=== PATIENT | female | born 1950 | race Caucasian/White ===

== ENCOUNTER → 2018-12-09 | Outpatient (CLI) | payer MEDICARE, OTHER | LOC: ZCOL.LAB 16:34 | DX: Z01.812 Encounter for preprocedural laboratory examination (principal) ==

== ENCOUNTER 2018-12-16 14:11 | Inpatient (IN) | payer MEDICARE, OTHER ==
[~2018-12-16] VITALS: Ht 158.8 cm; Wt 70.4 kg
[~2018-12-16 14:11] MED LIST: ASPIRIN 32325 MG/TA1 PO; CALCIUM 600600 M2 PO; CHOLESTEROL MA600 MG PO; FOLIC ACID0.4 MG PO; HCTZ 25MG TAB25 MG PO; IRON325 M1 PO; MAGNESIUM250 M1 PO; MULTIPLE VITAMI1 CAP PO; NATURAL VITAM1000 MG PO; POTASSIUM595 MG PO; TENORMIN 2525 MG/TAB PO
[2019-01-19] VITALS (11 sets, daily range): BP systolic 102–172; BP diastolic 32–74; PULSE 44–81; TEMP 97.4–97.8
[2019-01-19] MEDS ORDERED: ATIVAN 0.50.5 MG/TAB PO (07:45)
[2019-01-19] MEDS ORDERED: CELEXA40 MG PO (07:46)
[2019-01-19] MEDS ORDERED: TYLENOL 8 HR PO (07:46)
[2019-01-19] MEDS ORDERED: DYMISTA1 SPR NS (07:51)
--- NOTE | 2019-01-19 13:50 | NUR ---
CALLED ANESTHESIA REGARDING SB IN 40'S WITH DIASTOLIC B/P IN THE 30'S CONSISTANTLY. PATIENT DROWSY, WILL AROUSE BRIEFLY AND THEN FALL BACK ASLEEP. GAVE NOW DOSE FOR ROBINOL 0.2ML IV. HOSPITALIST CONSULT
--- NOTE | 2019-01-19 15:00 | NUR ---
AFTER MORPHINE 2MG IV DOSE, PATIENT O2 SATS WENT DOWN TO 87%. PATIENT ON 2L PER NC WITH SATS NOW IN LOW TO MID 90'S.
[2019-01-19 15:28] LABS: ALBUMIN 3.4 gm/dL (3.5-5.0); BASO % 0.2 % (0.0-2.0); BILIRUBIN,TOTAL 0.3 mg/dL (0.0-1.0); CALCIUM 8.6 mg/dL (8.4-10.2); CREATININE, serum 0.58 (0.52-1.25); EOS # 0.2 (0.0-0.7); EOS % 1.2 % (0-4.0); GRAN # 8.6 (1.4-6.5); GRAN % 69.1 % (42.2-75.2); HEMATOCRIT 41.6 % (37.0-47.0); HEMOGLOBIN 13.4 g/dl (12.5-16.0); LYMPH # 2.7 (1.2-3.4); LYMPH % 21.5 % (20.0-51.0); MAGNESIUM 1.9 mg/dL (1.6-2.3); MEAN CELL VOLUME 94 fl (80.0-100.0); MEAN CORPUSCULAR HEMOGLOBIN 30 pg (27.0-31.0); MEAN CORPUSCULAR HGB CONC 32 g/dl (33.0-37.0); MEAN PLATELET VOLUME 11.1 fl (7.4-10.4); MONO # 0.9 (0.1-0.6); MONO % 7.5 % (1.7-9.3); PLATELET COUNT 182 K/mm3 (130-400); RED BLOOD COUNT 4.41 M/mm3 (4.10-5.30); REDCELL DISTRIBUTION WIDTH-CV 13.8 % (11.5-14.5); TOTAL PROTEIN 5.9 gm/dL (6.4-8.2)
[2019-01-19 15:57] LABS: TSH w REFLEX 1.29 uIU/mL (0.465-4.680)
--- NOTE | 2019-01-19 16:36 | NUR ---
SW met with patient and to discuss discharge plan. Patient plans to return g[facility] and receive outpatient PT in [place]. Patient lives independently at home with her . Patient's PCP is Sil Avilez and she obtains prescriptions from [facility] or [email or web address] in [place]. Patient has a walker for ambulation but no other DME is reported. Patient does not use any home health services. Patient reports she does have a DPOA. SW does not anticipate any discharge needs.
[2019-01-19 21:04] LABS: COLLECTION METHOD CATHETER
[2019-01-19 21:13] LABS: PH 7 (5-8); SQUAMOUS EPITHELIAL 0-2 /hpf; URINE APPEARANCE Clear; URINE BACTERIA None Seen /hpf; URINE BILIRUBIN Negative (NEGATIVE); URINE BLOOD 1+ (NEGATIVE); URINE COLOR Yellow; URINE GLUCOSE 1+ (NEGATIVE); URINE KETONE Trace (NEGATIVE); URINE LEUKOCYTE ESTERASE Negative (NEGATIVE); URINE NITRATE Negative (NEGATIVE); URINE PROTEIN(semi-quant) Negative (NEGATIVE); URINE RBC 20-50 /hpf; URINE UROBILINOGEN Negative (NEGATIVE)
[2019-01-20] VITALS (7 sets, daily range): BP systolic 122–174; BP diastolic 45–75; PULSE 58–84; TEMP 97.2–98.7
--- NOTE | 2019-01-20 01:45 | NUR ---
Patient assessed and noted to have technol brace to right leg. Aquacel to right knee noted clean, dry, and intact. Patient states pain 10/10 upon assessment. PRN pain medication given. Patient refuses to ambulate with staff. States she will sit up on the side of her bed. Moves independently in bed. States movement causes a lot of pain. She sat on the side of her bed for about a minute before wanting to lie back down. Patient then fell asleep not long after we left the room. Patient asleep until about 0030 when she called staff stating she hadn't slept and she needed more pain medication. Scheduled Tylenol given at this time. Patient noted to be asleep on reassessment of pain. Will continue to monitor.
[2019-01-20 06:18] LABS: HEMOGLOBIN 13.5 g/dl (12.5-16.0)
--- NOTE | 2019-01-20 07:15 | NUR ---
Patient noted to have pain around 0600. Scheduled Tylenol given. Noted to be effective. Patient sleeping at this time. Report given to day shift.
--- NOTE | 2019-01-20 08:00 | NUR ---
PATIENT IS A&O. NOTED ELEVATED B/P WITH ALL OTHER VSS. GAVE SCHEDULED AM MEDS. PATIENT RATES PAIN HIGH IN RLE AT ALL TIMES, EVEN WHEN SLEEPING. GAVE PRN ROXICODONE, TWO TABS BEFORE AM THERAPY. RTK DRESSING IS CD&I WITH ACEWRAP. TEDS TO LLE. POSITIVE PEDAL PULSES TO BLE. DC'D DUGGAN PER ORDERS. DUGGAN CATH TIP INTACT AND PATIENT TOLERATED WELL. PATIENT ASSISTED TO BEDSIDE TO AMBULATE TO BATHROOM. PATIENT WAS INCONTINENT OF BOWL ALL THE WAY TO THE BATHROOM. PATIENT CLEANED UP AND ASSISTED FROM BATHROOM TO BEDSIDE CHAIR. ELEVATED RLE WITH PILLOW AND ICE PACK INPLACE. PATIENT REQUESTING MOM, GIVEN. LOOKING AT MENU. CALL LIGHT IN REACH.
--- NOTE | 2019-01-20 11:10 | NUR ---
HOSPITALIST CARE TEAM ROUNDING.
--- NOTE | 2019-01-20 20:30 | NUR ---
Pt. laying in bed at this time. Pt. is A&OX3, assessment complete. INT to lt. wrist patent. Dressing to rt. knee CDI. Pt. did get up to the bathroom with 1 assist, gait belt and walker. Pt. has refused to ambulate any farther tonight. Pt. reports pain at a 6 on pain scale. Pt. would like pain meds. Will give per orders. Pt. denies further needs at this time. Call light within reach.
[2019-01-21 04:53] VITALS: BP 152/52; PULSE 90; TEMP 98.1
--- NOTE | 2019-01-21 06:19 | NUR ---
Pt. slept well through the night. Pt. remains A&OX3. Pt. denies pain or other neeeds, call light within reach.
[2019-01-21 06:51] LABS: HEMOGLOBIN 12.1 g/dl (12.5-16.0)
--- NOTE | 2019-01-21 07:00 | NUR ---
REPORT FROM LUCAS HURST.
[2019-01-21 07:03] LABS: HEMATOCRIT 36.4 % (37.0-47.0)
[2019-01-21] MEDS ORDERED: ASPI325T6 PO (07:25)
[2019-01-21] MEDS ORDERED: NORCO 325 MG-7.1 TAB PO (07:25)
[2019-01-21] MEDS ORDERED: ROXICODONE 55 MG/TAB PO (07:25)
[2019-01-21] MEDS ORDERED: COLACE 100100 MG/CAP PO (07:26)
[2019-01-21 07:48] VITALS: BP 153/44; PULSE 82; TEMP 99.2
--- NOTE | 2019-01-21 09:10 | NUR ---
Initial visit; Patient thanked [facility] for looking in on her, visiting and offering God's blessings.
--- NOTE | 2019-01-21 09:10 | NUR ---
PT UP WITH THERAPY THIS AM. DRESSING TO RIGH KNEE WITH MIDLINE DRAINAGE NOTED. PT AMBULATING WITH STEADY GAIT. PAIN WELL CONTROLLED WITH PO MEDS.
[2019-01-21 12:06] VITALS: BP 158/69; PULSE 91; TEMP 97.7
--- NOTE | 2019-01-21 14:00 | NUR ---
discharge instructions given to patient and family. Questions answered, all verbalized understanding. Patient taken to front by wheel chair.
== END 2019-01-21 14:01 | disposition home or self-care (01) | DRG 470 ==
LOC: JCC 01-19 06:43
PROVIDERS: Physician Assistant; ADMIT Orthopaedic Surgery
PROC: 0SRC0J9 Replacement of Right Knee Joint with Synthetic Substitute, Cemented, Open Approach (ICD-10-PCS; principal; 2019-01-19 10:15)
DX: M17.11 Unilateral primary osteoarthritis, right knee (principal); I10 Essential (primary) hypertension; E78.5 Hyperlipidemia, unspecified; F17.210 Nicotine dependence, cigarettes, uncomplicated; F41.8 Other specified anxiety disorders; K21.9 Gastro-esophageal reflux disease without esophagitis; R00.1 Bradycardia, unspecified; I95.9 Hypotension, unspecified; R35.0 Frequency of micturition
CPT/HCPCS: 99222; 99231-AI; 99232-AI; A4314; A9284; C1776; J0690; J2250; J2270; J2405; J2704; J3010; J7030; J7120